=== PATIENT | female | born 1960 ===

== ENCOUNTER 2024-04-03 07:45 | Inpatient (IN) | payer OTHER ==
[~2024-04-03] VITALS: Wt 66.2 kg
[~2024-04-03 07:45] MED LIST: CATAFLAN PO; DUI500 PO; ELIQUIS2.5 MG PO; PERCOCET 5-3251 EACH PO; SYNTHROID50 MCG PO; [UNRECOGNIZED DRUG - OTHER] PO
[2024-04-03 09:27] VITALS: BP 128/84
[2024-04-03 09:31] LABS: HEMATOCRIT 36.5 % (36.0-45.00); HEMOGLOBIN 12.7 g/dL (12.0-15.00); MEAN CELL VOLUME 99.8 fL (80.00-100.00); MEAN CORPUSCULAR HEMOGLOBIN 34.6 pg (27.00-32.0); MEAN CORPUSCULAR HGB CONC 34.7 g/dl (32.0-36.0); PLATELET COUNT 249 K/uL (150-450); RED BLOOD COUNT 3.66 M/uL (4.00-6.00); RED CELL DISTRIBUTION WIDTH 12.9 % (11.5-14.5)
[2024-04-03 10:01] LABS: INR 0.99; PARTIAL THROMBOPLASTIN TIME 25.8 SECONDS (22.0-34.0); PROTHROMBIN TIME 10.8 SECONDS (9.0-11.5)
[2024-04-03 10:03] LABS: PH,URINE 7.5 (5.0-8.0); URINE APPEARANCE Clear; URINE BILIRRUBIN Negative (NEGATIVE); URINE BLOOD Negative; URINE COLOR Yellow; URINE GLUCOSE Negative (NEGATIVE); URINE KETONE Negative (NEGATIVE); URINE LEUKOCYTE Negative; URINE NITRATE Negative; URINE PROTEIN Negative (NEGATIVE); URINE UROBILINOGEN 0.2 E.U./dl
[2024-04-03 10:07] LABS: URINE BACTERIA 42.8 uL (0.0-1933); URINE EPITHELIAL CELLS 4.1 uL (0.0-38.8); URINE WBC 4.6 uL (0.0-23.2)
[2024-04-03 10:16] LABS: URINE RBC 0.9 uL (0.0-20.8)
[2024-04-03 10:37] LABS: ALBUMIN 3.8 gm/dL (3.4-5.0); BILIRUBIN TOTAL 0.48 mg/dL (0.3-1.2); CHOL HDL RATIO 2.3 (0-5.0); CREATININE SERUM 0.45 mg/dL (0.55-1.02); GFR 140.72; GLOBULINA 3.7 G/DL (2.4-3.5); POTASSIUM 4.06 mEq/L (3.5-5.1); TOTAL PROTEIN 7.5 gm/dL (6.4-8.2)
[2024-04-10] MEDS ORDERED: TRANEXAMIC ACID 100MG/1ML (1000MG) AMPUL IV ONE ×2 (17:00)
[2024-04-10] MEDS ORDERED: CEFAZOLIN SODIUM 1,000 MG VIAL IV ONE (17:00)
[2024-04-10] MEDS ORDERED: OxyCODONE HCL 5 MG TABLET (ROXICODONE) PO PRN (19:45)
[2024-04-10] MEDS ORDERED: ONDANSETRON HCL 2 MG/ML VIAL IV PRN (19:45)
[2024-04-10] MEDS ORDERED: MORPHINE SULFATE 4 MG/ML CARTRIDGE IV PRN (19:45)
[2024-04-10] MEDS ORDERED: SODIUM CHLORIDE 0.45 % 1,000 ML IV SCH (19:45)
[2024-04-10] MEDS ORDERED: MORPHINE SULFATE 4 MG/ML VIAL IV ONE ×2 (21:30→22:00)
[2024-04-10] MEDS ORDERED: MORPHINE SULFATE 4 MG/ML CARTRIDGE IV ONE (23:00)
[2024-04-11] MEDS ORDERED: ACETAMINOPHEN 500 MG GEL..CAP PO SCH
[2024-04-11] MEDS ORDERED: CEFAZOLIN SODIUM 1,000 MG VIAL IV SCH (01:00)
[2024-04-11] MEDS ORDERED: GABAPENTIN 300 MG CAPSULE PO SCH (01:00)
[2024-04-11] MEDS ORDERED: MORPHINE SULFATE 4 MG/ML VIAL IV ONE (03:00)
[2024-04-11 06:26] LABS: HEMATOCRIT 27.8 % (36.0-45.00); MEAN CELL VOLUME 98.5 fL (80.00-100.00); MEAN CORPUSCULAR HGB CONC 35.8 g/dl (32.0-36.0); PLATELET COUNT 233 K/uL (150-450); RED BLOOD COUNT 2.82 M/uL (4.00-6.00)
[2024-04-11 06:37] LABS: HEMOGLOBIN 9.9 g/dL (12.0-15.00); MEAN CORPUSCULAR HEMOGLOBIN 35.1 pg (27.00-32.0)
[2024-04-11] MEDS ORDERED: DUI500 PO (08:03)
[2024-04-11] MEDS ORDERED: ELIQUIS2.5 MG PO (08:03)
[2024-04-11] MEDS ORDERED: PERCOCET 5-3251 EACH PO (08:03)
[2024-04-11] MEDS ORDERED: APIXABAN 2.5 MG TABLET PO SCH (09:00)
[2024-04-11] MEDS ORDERED: SENNOSIDES 1 TAB TABLET PO SCH (09:00)
[2024-04-11 10:30] VITALS: BP 95/66; O2SAT 97
[2024-04-11] MEDS ORDERED: ENALAPRILAT DIHYDRATE 1.25 MG/ML VIAL IV PRN (11:15)
[2024-04-11 16:00] VITALS: BP 143/82; O2SAT 100
[2024-04-11] MEDS ORDERED: VITAMIN B COMPLEX 1 EACH PO SCH (17:00)
[2024-04-11] MEDS ORDERED: SOD FERRIC GLUC COMPLX/SUCROSE 62.5 MG/5 ML AMPUL IV SCH (17:00)
[2024-04-11] MEDS ORDERED: Cyanocobalamin/Mecobalamin 1 TAB.SL SL SCH (17:00)
[2024-04-12 00:24] VITALS: BP 105/66; O2SAT 99
[2024-04-12] MEDS ORDERED: LEVOTHYROXINE SODIUM 50 MCG TABLET PO SCH (06:00)
[2024-04-12 07:02] LABS: HEMATOCRIT 28.3 % (36.0-45.00); MEAN CELL VOLUME 99.1 fL (80.00-100.00); MEAN CORPUSCULAR HEMOGLOBIN 34.8 pg (27.00-32.0); MEAN CORPUSCULAR HGB CONC 35.2 g/dl (32.0-36.0); PLATELET COUNT 215 K/uL (150-450); RED BLOOD COUNT 2.86 M/uL (4.00-6.00); RED CELL DISTRIBUTION WIDTH 12.8 % (11.5-14.5)
[2024-04-12 07:53] VITALS: BP 106/70; O2SAT 98
[2024-04-12] MEDS ORDERED: IRON FUM,PS/FOLIC ACID/VITC/B3 1 CAP CAPSULE PO SCH (09:00)
== END 2024-04-12 14:27 | disposition home or self-care (01) | DRG 470 ==
LOC: SURH 04-10 07:45 → O/R 04-10 16:37 → SURH 04-10 22:45 → SURG 04-11 10:42
PROVIDERS: ADMIT Orthopaedic Surgery; ATTEND Orthopaedic Surgery
PROC: 0SR90JA Replacement of Right Hip Joint with Synthetic Substitute, Uncemented, Open Approach (ICD-10-PCS; principal; 2024-04-10 22:45)
DX: M16.11 Unilateral primary osteoarthritis, right hip (principal); D62 Acute posthemorrhagic anemia; M25.751 Osteophyte, right hip; M70.61 Trochanteric bursitis, right hip